=== PATIENT | female | born 1995 | race Caucasian/White ===

== ENCOUNTER 2020-03-26 18:43 | Emergency (ER) | payer OTHER, SELFPAY ==
[2020-03-26 18:48] VITALS: BP 113/63; PULSE 61; RESP 16; TEMP 37; O2SAT 98; BMI 20.1
--- NOTE | 2020-03-26 18:53 | DI.RAD.S_ITS ---
PROCEDURE: XR FOOT RT MIN 3V INDICATIONS: left foot pain TECHNIQUE: 3 views of the foot were acquired. COMPARISON: None. FINDINGS: Bones: No fractures or dislocations. No suspicious bony lesions. Soft tissues: No tibiotalar joint effusion. Achilles tendon appears normal. IMPRESSION: No fracture. If the patient's symptoms do not improve recommend followup radiographs in 10 days to assess for healing sclerosis/occult injury. Dictated by: Vidal Cordoba M.D. on 03/26/2020 at 19:09 Approved by: Vidal Cordoba M.D. on 03/26/2020 at 19:11
--- NOTE | 2020-03-26 19:54 | ED.LOWEXIN ---
HPI - Extremity Injury (Lower) General Chief Complaint: Extremity Injury, Lower Stated Complaint: left foot injury, heard cracking Time Seen by Provider: 03/26/20 18:59 Source: patient Mode of arrival: Ambulatory Limitations: no limitations History of Present Illness HPI Narrative: 24-year-old female here for evaluation of left foot pain. States that earlier today she did hit it on a piece of furniture and since that time has had pain over the little toe of her left foot. She came in for an x-ray because she was concerned about a fracture. Related Data Allergies Allergy/AdvReac Type Severity Reaction Status Date / Time latex Allergy Verified 03/26/20 18:48 Review of Systems Constitutional Constitutional: Denies headache(s) ENT Ears, Nose, Mouth, and Throat: Denies headache(s) Musculoskeletal Musculoskeletal: Denies tingling Comments: Left foot pain Integumentary/Breasts Skin/Breast: Denies lesions and Denies rash Neurologic Neurologic: Denies headache(s) and Denies tingling Hematologic/Lymphatic On Anticoagulants: No Allergic/Immunologic Allergic/Immunologic: Denies urticaria Patient History Medical History Healthy adult Social History Smoking Status: Never smoker Smoking Status: Never smoker Substance Use Type: does not use Exam Initial Vital Signs Initial Vital Signs: Vital Signs Temperature 98.6 F 03/26/20 18:48 Pulse Rate 61 03/26/20 18:48 Respiratory Rate 16 03/26/20 18:48 Blood Pressure 113/63 03/26/20 18:48 Pulse Oximetry 98 03/26/20 18:48 Const General: cooperative and comfortable Limitations: mental status not altered HENNC Head: normal to inspection and normocephalic Skin Lesions: no lesions Rashes: no rashes Neuro Sensory Exam: no sensory deficits noted Extrem Other: Tenderness to palpation over the lateral 2 toes of her left foot Psych Appearance: grossly normal and well kempt Procedures Orthopedic Splinting/Casting Injury #1: Side: left Lower Extremity Injury Location: foot Lower Extremity Immobilizer: post-op shoe Post splinting neuro exam: intact Post splinting vascular exam: intact Placed by: Nursing Course Orders Ordered: ED Orders 03/26/20 18:53 XR foot RT min 3V Stat Vital Signs Vital signs: Vital Signs - 8 hr 03/26/20 18:48 Temperature 98.6 F Pulse Rate 61 Respiratory Rate 16 Blood Pressure 113/63 Pulse Oximetry 98 MDM - Extremity Injury (Lower) Lab Data Labs: Point of Care Testing Test Results Negative Imaging Data Extremity x-ray #1: Radiologist's Impression: [address] [id number] ReportSigned Patient: Sierra GodinezMR#: [id number]: 1995Acct:[id number]/Sex: 24 / FDate of Service: 03/26/20Loc: EDAccession Number: [id number] Procedure: XR foot RT min 3V Ordering Provider: Octavio Lopez D.O. PROCEDURE: XR FOOT RT MIN 3V INDICATIONS: left foot pain TECHNIQUE: 3 views of the foot were acquired. COMPARISON: None. FINDINGS: Bones: No fractures or dislocations. No suspicious bony lesions. Soft tissues: No tibiotalar joint effusion. Achilles tendon appears normal. IMPRESSION: No fracture. If the patient's symptoms do not improve recommend followup radiographs in 10 days to assess for healing sclerosis/occult injury. Dictated by: Vidal Cordoba M.D. on 03/26/2020 at 19:09 Approved by: Vidal Cordoba M.D. on 03/26/2020 at 19:11 [facility] Narrative Medical decision making narrative: No fractures on the x-ray, neurovascularly intact, patient was given a hard sole shoe for her comfort. She was given return precautions and follow-up instructions. She expressed understanding and agreement. Discharge Plan Departure Patient Disposition: Home Clinical Impression: Injury of toe on left foot Qualifiers: Encounter type: initial encounter Qualified Code(s): S99.922A - Unspecified injury of left foot, initial encounter Activity Restrictions/Additional Instructions: I would recommend that you keep your foot elevated. You can also use ice. Use the hard sole shoe as needed. Otherwise you have no restrictions on your activities. Return to the emergency department for any new or worsening symptoms
== END 2020-03-26 20:00 | disposition home or self-care (01) ==
PROVIDERS: Emergency Provider Emergency Medicine
DX: S99.922A Unspecified injury of left foot, initial encounter (principal); W22.03XA Walked into furniture, initial encounter
CPT/HCPCS: 73630; 81025; 99281; 99283

== ENCOUNTER 2021-08-24 11:44 | Emergency (ER) | payer OTHER, SELFPAY ==
[2021-08-24 12:42] VITALS: BP 107/53; PULSE 76; RESP 18; TEMP 36.2; O2SAT 100; BMI 20.7
[2021-08-24 16:37] VITALS: BP 105/52; PULSE 62; O2SAT 100
--- NOTE | 2021-08-24 16:43 | DI.US.S_ITS ---
PROCEDURE: US OB <= 14 WEEKS FETUS INDICATIONS: abd pain, approx 7 weeks preg OUTSIDE/PRIOR DATING DATA: Last menstrual period (LMP): 07/02/2021. LMP-based estimated date of delivery (DAKOTA): 04/08/2022. First dating scan (date and location): 08/24/2021. Estimated date of delivery (DAKOTA) from first dating scan: 04/06/2022. The calculations are made using the ultrasound generated DAKOTA of 04/06/2019. TECHNIQUE: Real-time scanning was performed of the fetus and maternal pelvic organs, with image documentation. Endovaginal scanning was also performed to better visualize the fetus and maternal ovaries. COMPARISON: None. FINDINGS: [employer]-rump length 1.5 cm, corresponding to gestational age of 7 weeks 6 days. Yolk sac noted. heart rate 157 beats per minute. Ovaries normal in size and appearance. Probable corpus luteum cyst in the right ovary noted. IMPRESSION: Single live intrauterine gestation with estimated ultrasound age of 7 weeks 6 days. We strive to produce accurate, complete, and clear reports of imaging services. To assist us in improving patient care, this report was composed using standard report templates and voice recognition software. Therefore, it may contain abnormal punctuation, insertions and/or omissions. Occasional wrong-word or sound-alike substitutions may occur. Though we review the report and make efforts to correct it, we do recommend that the report be read carefully in proper context to recognize any text inaccuracies. Dictated by: Jackson Pittman M.D. on 08/24/2021 at 17:36 Approved by: Jackson Pittman M.D. on 08/24/2021 at 17:38
[2021-08-24 16:56] LABS: Add Manual Diff / Slide Review NO; Basophils Absolute Auto 100 /uL (0-100); Basophils Percent Auto 1.2 % (0-2); Eosinophils Absolute Auto 100 /uL (0-450); Eosinophils Percent Auto 1.2 % (2-4); Hematocrit 33.5 % (36-46); Hemoglobin 11.5 g/dL (12.0-16.0); Lymphocytes Absolute Auto 1700 /uL (1100-4500); Lymphocytes Percent Auto 23.1 % (25-40); Mean Corpuscular HGB Conc 34.2 % (30-36); Mean Corpuscular Hemoglobin 30.3 PG (26-34); Mean Corpuscular Volume 88.7 fL (80-100); Monocytes Absolute Auto 700 /uL (0-900); Neutrophils Absolute Auto 4700 /uL (1500-7000); Neutrophils Percent Auto 65.5 % (50-75); Platelet Count 228 X10^3/uL (150-400); Red Blood Cell Count 3.78 X10^6/uL (4.0-5.2); Red Cell Distribution Width 13.4 % (11.6-14.8); White Blood Cell Count 7.2 X10^3/uL (4.5-11.0)
--- NOTE | 2021-08-24 16:56 | ED.FEMALEGU ---
HPI - Female Genitourinary General Chief complaint: Abdominal Pain Stated complaint: 7 wks - Stomach pain Time Seen by Provider: 08/24/21 16:43 Source: patient Mode of arrival: Ambulatory Limitations: no limitations History of Present Illness HPI Narrative: This is a 26-year-old G P will approximately 7 weeks by dates. Patient has had some nausea but today started having abdominal discomfort sort of medial suprapubically. She states started little bit more epigastric and then moved further down. She does not any back or flank pain. She states both sides. She has had nausea but no active vomiting. No fevers. She felt a little lightheaded. She denies dysuria, urgency or frequency. No vaginal bleeding or discharge or changes to discharge. She had a diarrhea this morning which stabbed. No black or bloody stools she states it was normal coloration and not dark. She does have a history of IBS, she has had flares in the past but not with her prior pregnancies. She has had tympanostomy tubes, surgery for infection her eyebrow, tonsils and wisdom teeth but no other intra-abdominal surgeries. She takes sertraline currently 200 mg daily, no other daily medications. No medication allergies. She is accompanied by her family. She has not had an ultrasound to rule out ectopic. She has established with a OBGYN provider here locally. Related Data Home Medications Medication Instructions Recorded Confirmed buspirone 10 mg tablet 10 mg PO BID 11/20/20 11/20/20 sertraline 50 mg tablet 150 mg PO DAILY 11/20/20 11/20/20 Previous Rx's Medication Instructions Recorded ondansetron 4 mg disintegrating 4 mg PO Q6H PRN nausea and 08/24/21 tablet vomiting #10 tabs Allergies Allergy/AdvReac Type Severity Reaction Status Date / Time latex Allergy welts at Verified 01/22/21 12:21 location of latex Review of Systems Review of Systems ROS Unobtainable: All systems reviewed & are unremarkable except as noted in HPI and below Patient History Medical History Healthy adult alcohol intake frequency: holidays/special occasions only Substance Use Type: does not use Exam Narrative Exam Narrative: GENERAL: Alert and oriented x three, well-appearing female in mild distress. HEENT: Head normocephalic, atraumatic, EOMI, pupils reactive, face symmetric, moist mucous membranes NECK: Supple, full range of motion CARDIOVASCULAR: Regular rate and rhythm without murmurs, rubs or gallops. RESPIRATORY: Breath sounds equal bilaterally, no wheezes rales or rhonchi. ABDOMEN: Soft, positive lower abdominal tenderness greatest at the suprapubic region, mild to moderately left and right. Normoactive bowel sounds all 4 quadrants. No guarding or rebound, rigidity, no mass : No CVA tenderness EXTREMITIES: Normal range of motion, no clubbing or edema. Neurovascularly intact NEUROLOGICAL: Cranial nerves II through XII grossly intact. Moving all extremities SKIN: Warm, dry, no petechiae, no rashes or lesions. Initial Vital Signs Initial Vital Signs: Vital Signs Temperature 97.2 F L 08/24/21 12:42 Pulse Rate 76 08/24/21 12:42 Respiratory Rate 18 08/24/21 12:42 Blood Pressure 107/53 L 08/24/21 12:42 Pulse Oximetry 100 08/24/21 12:42 Oxygen Delivery Method 08/24/21 12:42 Course Orders Ordered: ED Orders 08/24/21 16:43 US OB <= 14 weeks fetus Stat 08/24/21 16:50 ABO RH Type Stat Beta HCG, Quant [HCG Quantitative /Beta subunit] Stat CBC Auto Diff [Complete Blood Count AUTO DIFF] Stat CMP [Comprehensive Metabolic Panel] Stat Lipase Stat Discontinued Medications Acetaminophen (Acetaminophen 325 Mg Tablet) 975 mg PO NOW ONE Stop: 08/24/21 17:07 Last Admin: 08/24/21 17:33 Dose: 975 mg Documented By: FREEMAN Sodium Chloride (Normal Saline 0.9%) 1,000 mls @ 1,000 mls/hr IV BOLUS ONE Stop: 08/24/21 18:05 Last Infusion: 08/24/21 18:32 Dose: 0 mls/hr Documented By: Admin: 08/24/21 17:33 Dose: 1,000 mls/hr Documented By: FREEMAN Ondansetron HCl (Ondansetron 4 Mg/2 Ml Inj) 4 mg IV NOW ONE Stop: 08/24/21 17:46 Last Admin: 08/24/21 17:50 Dose: 4 mg Documented By: FREEMAN Vital Signs Vital signs: Vital Signs - 8 hr 08/24/21 12:42 08/24/21 16:37 08/24/21 16:37 Temperature 97.2 F L Pulse Rate 76 62 Respiratory Rate 18 Blood Pressure 107/53 L 105/52 L Pulse Oximetry 100 100 Oxygen Delivery Method Room Air 08/24/21 18:13 Temperature Pulse Rate 74 Respiratory Rate 16 Blood Pressure 105/60 Pulse Oximetry 99 Oxygen Delivery Method Room Air MDM - Female Genitourinary Lab Data Result diagrams: 08/24/21 16:50 08/24/21 16:50 Labs: Lab Results 08/24/21 08/24/21 08/24/21 Range/Units 16:50 16:50 16:50 WBC 7.2 (4.5-11.0) X10^3/uL RBC 3.78 L (4.0-5.2) X10^6/uL Hgb 11.5 L (12.0-16.0) g/dL Hct 33.5 L (36-46) % MCV 88.7 (80-100) fL MCH 30.3 (26-34) PG MCHC 34.2 (30-36) % RDW 13.4 (11.6-14.8) % Plt Count 228 (150-400) X10^3/uL Neut % (Auto) 65.5 (50-75) % Lymph % (Auto) 23.1 L (25-40) % [place] % (Auto) 9.0 (3-14) % Eos % (Auto) 1.2 L (2-4) % Baso % (Auto) 1.2 (0-2) % Neut # (Auto) 4700 (1094-7550) /uL Lymph # (Auto) 1700 (3873-4743) /uL [place] # (Auto) 700 (0-900) /uL Eos # (Auto) 100 (0-450) /uL Baso # (Auto) 100 (0-100) /uL Sodium 135 L (137-145) mmol/L Potassium 3.6 (3.4-5.1) mmol/L Chloride 105 (98-107) mmol/L Carbon Dioxide 22 (22-32) mmol/L BUN 12 (7-17) mg/dL Creatinine 0.57 (0.52-1.04) mg/dL Estimated GFR > 60 (>60) mL/min BUN/Creatinine Ratio 21.1 (6-22) Glucose 118 H (70-100) mg/dL Calcium 8.6 (8.4-10.2) mg/dL Total Bilirubin 0.5 (0.2-1.3) mg/dL AST 18 (14-36) IU/L ALT 12 (<35) IU/L Alkaline Phosphatase 37 L (38-126) U/L Total Protein 7.1 (6.3-8.2) g/dL Albumin 4.3 (3.5-5.0) g/dL Globulin 2.8 (1.7-4.1) g/dL Albumin/Globulin Ratio 1.5 (1.0-2.8) Lipase 46 (23-300) U/L HCG, Quant 95869 mIU/mL Blood Type O Negative Point of Care Testing Test Results Positive Urine Dip Bedside Urine Glucose Negative Bedside Urine Bilirubin - Negative Bedside Urine Ketone - Negative Urine Specific [place] 1.025 Bedside Urine Occult Blood - Negative Bedside Urine pH 6.0 Bedside Urine Protein - Negative Bedside Urine Urobilinogen - Negative Bedside Urine Nitrite - Negative Bedside Urine Leukocytes - Negative Esterase MDM Narrative Medical decision making narrative: This is a 26-year-old female who is approximately 7 weeks by dates, she has had increasing abdominal pain she does have a history of IBS she did have diarrhea today but has not had ultrasound to evaluate for ectopic she has not had any vaginal bleeding or new discharge. No fevers. Labs do not reveal any other causes. Urine does not show any signs of infection. Patient had Tylenol fluids here in the department ultrasound shows 7 weeks and 6 days which consistent with patient states, hCG appropriate no signs of ectopic. Plan for patient to follow-up with providers Discharge Plan Departure Patient Disposition: Home Clinical Impression: Abdominal pain affecting Activity Restrictions/Additional Instructions: Follow-up with your provider. Follow up at your appointment in September. Your ultrasound today is reassuring and does not show any signs of and you appear to be 7 weeks and 6 days by ultrasound. You may continue with Tylenol up to a 1000 mg every 6 hours as needed. You can take Zofran 1 tablet every 6 hours as needed for nausea. Prescription sent to [facility] Please return for fevers, worsening symptoms, persistent vomiting, black or bloody stools, rapidly worsening abdominal, back or flank pain or other new or concerning symptoms. Prescriptions: New ondansetron 4 mg tablet,disintegrating 4 mg PO Q6H PRN (Reason: nausea and vomiting) Qty: 10 0RF No Action sertraline 50 mg tablet 150 mg PO DAILY buspirone 10 mg tablet 10 mg PO BID Referrals: Madelin Pantoja, Pharm.D [Primary Care Provider] - Visit Report Forms: Patient Portal/API
[2021-08-24 17:09] LABS: Alanine Aminotransferase 12 IU/L (<35); Albumin 4.3 g/dL (3.5-5.0); Albumin Globulin Ratio 1.5 (1.0-2.8); Alkaline Phosphatase 37 U/L (38-126); Aspartate Aminotransferase 18 IU/L (14-36); BUN Creatinine Ratio 21.1 (6-22); Bilirubin Total 0.5 mg/dL (0.2-1.3); Blood Urea Nitrogen 12 mg/dL (7-17); Calcium 8.6 mg/dL (8.4-10.2); Carbon Dioxide 22 mmol/L (22-32); Chloride 105 mmol/L (98-107); Estimated Glomerular Filt Rate > 60 mL/min (>60); Globulin 2.8 g/dL (1.7-4.1); Glucose 118 mg/dL (70-100); HEMOLYSIS < 15 (0-50); Lipase 46 U/L (23-300); Potassium 3.6 mmol/L (3.4-5.1); Sodium 135 mmol/L (137-145); Total Protein 7.1 g/dL (6.3-8.2)
[2021-08-24] MEDS: ACETAMINOPHEN 325 MG TABLET 975 MG PO (17:33)
[2021-08-24] MEDS: SODIUM CHLORIDE 0.9% 1,000 ML 1000 ML IV (17:33)
[2021-08-24 17:50] LABS: HCG Quantitative /Beta subunit 44126 mIU/mL
[2021-08-24] MEDS: ONDANSETRON 4 MG/2 ML INJ IV (17:50)
[2021-08-24 18:13] VITALS: BP 105/60; PULSE 74; RESP 16; O2SAT 99
== END 2021-08-24 18:13 | disposition home or self-care (01) ==
PROVIDERS: Emergency Provider Emergency Medicine; PCP Pharmacist Pharmacist Clinician (PhC)/ Clinical Pharmacy Specialist
DX: O26.891 Other specified pregnancy related conditions, first trimester (principal); R10.13 Epigastric pain; Z3A.01 Less than 8 weeks gestation of pregnancy
CPT/HCPCS: 36415; 76801; 76817; 80053; 81003; 81025; 83690; 84702; 85025; 86900; 86901; 96361; 96374; 99284; J2405

== ENCOUNTER → 2022-02-10 17:45 | Outpatient (CLI) | payer OTHER, SELFPAY ==
[2022-02-10 18:34] LABS: Influenza A - CEPHEID Flu A POSITIVE (NEGATIVE); Influenza B - CEPHEID Flu B NEGATIVE (NEGATIVE); Respiratory Syncytial Virus Negative (Negative)
[2022-02-10 18:35] LABS: COVID-19 CEPHEID 4-PLEX PCR Negative (Negative)
== END ==
PROVIDERS: PCP Pharmacist Pharmacist Clinician (PhC)/ Clinical Pharmacy Specialist; Visit Provider Nurse Practitioner Family
DX: R50.9 Fever, unspecified (principal); Z20.822 Contact with and (suspected) exposure to COVID-19
CPT/HCPCS: 0241U

== ENCOUNTER 2022-05-16 10:49 | Emergency (ER) | payer OTHER, SELFPAY ==
[2022-05-16] VITALS (7 sets, daily range): BP systolic 105–116; BP diastolic 54–71; PULSE 63–88; RESP 17–18; TEMP 36.6; O2SAT 97–100; BMI 21.9
--- NOTE | 2022-05-16 13:03 | ED.EYEPROB ---
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 She was worried that possibly the nerves were bigger. Patient is not having any new or worsening symptoms accept that she is having difficulty seeing at night. She reports that her vision is very poor it has been for her whole life. She also reports that she is trying to get she believes that she is now. Previously when she is been it has caused multiple problems with her vision and her body. She denies any headaches numbness tingling weakness ataxia blurry vision double vision or any other signs or symptoms. The person she saw yesterday recommended that she come to an ER immediately for an MRI. Her paper reports that she has pressures in her left eye 16 and right eye F 14 which are not elevated. Related Data Home Medications Medication Instructions Recorded Confirmed buspirone 10 mg tablet 10 mg PO BID 11/20/20 11/20/20 sertraline 50 mg tablet 150 mg PO DAILY 11/20/20 11/20/20 Previous Rx's Medication Instructions Recorded ondansetron 4 mg disintegrating 4 mg PO Q6H PRN nausea and 08/24/21 tablet vomiting #10 tabs Allergies Allergy/AdvReac Type Severity Reaction Status Date / Time latex Allergy welts at Verified 01/22/21 12:21 location of latex Review of Systems Review of Systems ROS Unobtainable: All systems reviewed & are unremarkable except as noted in HPI and below Patient History Medical History Healthy adult Social History Smoking Status: Never smoker Smoking Status: Never smoker alcohol intake frequency: holidays/special occasions only Substance Use Type: does not use Exam Initial Vital Signs Initial Vital Signs: Vital Signs Temperature 97.9 F 05/16/22 10:57 Pulse Rate 88 05/16/22 10:57 Respiratory Rate 18 05/16/22 10:57 Blood Pressure 116/71 05/16/22 10:57 Pulse Oximetry 98 05/16/22 10:57 Oxygen Delivery Method Room Air 05/16/22 10:57 GENERAL: Alert 27-year-old female year old patient HEAD: Atraumatic. Normocephalic. EYES: Pupils equal round and reactive. Extraocular motions intact. No scleral icterus. No injection or drainage. CARDIOVASCULAR: Regular rate and rhythm without murmurs, gallops, or rubs. RESPIRATORY: Clear to auscultation. Breath sounds equal bilaterally. No wheezes, rales, or rhonchi. NEURO: AOx3. SKIN: No rash or erythema of visible areas Course Orders Ordered: ED Orders 05/16/22 13:35 Urine Culture Stat Urine Microscopic Stat Discontinued Medications Proparacaine HCl (Proparacaine 0.5% Ophth Celia) 1 drops EYE-BOTH NOW ONE Stop: 05/16/22 13:23 Last Admin: 05/16/22 13:30 Dose: 1 drop Documented By: JARROD Vital Signs Vital signs: Vital Signs - 8 hr 05/16/22 13:57 05/16/22 13:42 05/16/22 13:43 Pulse Rate 63 65 Respiratory Rate 17 Blood Pressure 113/67 105/54 L Pulse Oximetry 98 97 Oxygen Delivery Method Room Air 05/16/22 13:43 05/16/22 13:52 05/16/22 13:52 Pulse Rate 64 68 Respiratory Rate Blood Pressure 113/67 Pulse Oximetry 97 98 Oxygen Delivery Method MDM - Eye Problem Lab Data Labs: Lab Results 05/16/22 Range/Units 13:35 Urine RBC None seen (0-5/HPF) Urine WBC 5-10/hpf H (0-5/HPF) Ur Squamous Epith Cells 5-10 /hpf H (0-5/HPF) Amorphous Sediment 2+ Urine Bacteria Few (2-10) H (None) Point of Care Testing Test Results Negative Urine Dip Bedside Urine Glucose Negative Bedside Urine Bilirubin - Negative Bedside Urine Ketone - Negative Urine Specific [place] 1.020 Bedside Urine Occult Blood - Negative Bedside Urine pH 7 Bedside Urine Protein - Negative Bedside Urine Urobilinogen - Negative Bedside Urine Nitrite - Negative Bedside Urine Leukocytes + 70 Esterase MDM Narrative Medical decision making narrative: Patient 27-year-old female who has chronic ongoing eye issues and large nerves stigmatism she is very in tune with her body in eye she is been dealing with this her whole life. She really has no new neurologic deficits. She has some worsening night vision. She has no difficulty walking no headaches no nausea no vomiting double or blurry vision. She is here at the request of a provider who evaluated her yesterday for an emergent MRI. Her pressures in her eyes both yesterday and today are well within normal limits 18 L 16 R. I see no need reason for an emergent MRI today. I do strongly encourage her to see an substance abuse prevention coordinator to follow her eyes. She was concerned that she might be she is not Discharge Plan Departure Patient Disposition: Home Clinical Impression: Vision abnormalities Instructions: Coping With Low Vision Activity Restrictions/Additional Instructions: *You have been diagnosed with visual changes *What to do: At this time I see absolutely no reason for an emergent MRI. At this time your urine is still negative although still early I am hopeful for you *Continue to take medications as directed *Follow up with your primary care provider in 2-3 days or call [phone] *Return to ER if you should have increasing headache vomiting weakness numbness tingling difficulty ambulating or any new, worsening or concerning symptoms Prescriptions: No Action sertraline 50 mg tablet 150 mg PO DAILY buspirone 10 mg tablet 10 mg PO BID ondansetron 4 mg tablet,disintegrating 4 mg PO Q6H PRN (Reason: nausea and vomiting) Qty: 10 0RF Referrals: Pili Smith MD [Physician] - Morris Waite MD [Physician] - Madelin Pantoja, Pharm.D [Primary Care Provider] - Stand Alone Forms: Patient Portal/API
[2022-05-16] MEDS: PROPARACAINE 0.5% OPHTH SOL 1 DROPS EYE-BOTH (13:30)
[2022-05-16 13:53] LABS: Amorphous Sediment Urine 2+; Bacteria Urine Few (2-10); RBC Urine None Seen (0-5/HPF); Squamous Epithelial Cell Urine 5-10 /HPF (0-5/HPF); WBC Urine 5-10/HPF (0-5/HPF)
== END 2022-05-16 13:59 | disposition home or self-care (01) ==
PROVIDERS: Emergency Provider Emergency Medicine; PCP Pharmacist Pharmacist Clinician (PhC)/ Clinical Pharmacy Specialist
DX: H53.9 Unspecified visual disturbance (principal)
CPT/HCPCS: 81003; 81015; 81025; 87086; 99282; 99283

== ENCOUNTER 2022-07-22 09:57 | Emergency (ER) | payer OTHER, SELFPAY ==
[2022-07-22 10:01] VITALS: BP 118/56; PULSE 66; RESP 14; TEMP 36.6; O2SAT 98; BMI 21.6
--- NOTE | 2022-07-22 10:03 | DI.US.S_ITS ---
PROCEDURE: US OB <= 14 WEEKS FETUS INDICATIONS: 8.5 WEEKS , SPOTTING, DENIES PAIN OUTSIDE/PRIOR DATING DATA: Last menstrual period (LMP): 05/23/2022. LMP-based estimated date of delivery (DAKOTA): 02/27/2023. First dating scan (date and location): 07/22/2022. Estimated date of delivery (DAKOTA) from first dating scan: 02/25/2023. TECHNIQUE: Real-time scanning was performed of the fetus and maternal pelvic organs, with image documentation. Endovaginal scanning was also performed to better visualize the fetus and maternal ovaries. COMPARISON: [facility], , OB <= 14 WEEKS FETUS, 08/24/2021, 17:09. FINDINGS: Embryo: Present, measuring 2.2 centimeter, corresponding to 8 weeks 6 days. Heart rate: 163 beats per minute Maternal organs: Ovaries are not visualized. IMPRESSION: Single living intrauterine at 8 weeks 6 days, DAKOTA of 02/25/2023. Findings are concordant with dating by LMP. No acute abnormality. We strive to produce accurate, complete, and clear reports of imaging services. To assist us in improving patient care, this report was composed using standard report templates and voice recognition software. Therefore, it may contain abnormal punctuation, insertions and/or omissions. Occasional wrong-word or sound-alike substitutions may occur. Though we review the report and make efforts to correct it, we do recommend that the report be read carefully in proper context to recognize any text inaccuracies. Dictated by: Brennan Skinner M.D. on 07/22/2022 at 10:52 Approved by: Brennan Skinner M.D. on 07/22/2022 at 10:54
[2022-07-22 11:40] LABS: Add Manual Diff / Slide Review NO; Basophils Absolute Auto 100 /uL (0-100); Eosinophils Absolute Auto 100 /uL (0-450); Hematocrit 32.5 % (36-46); Hemoglobin 11.3 g/dL (12.0-16.0); Lymphocytes Absolute Auto 1300 /uL (1100-4500); Mean Corpuscular HGB Conc 34.8 % (30-36); Mean Corpuscular Hemoglobin 30.4 PG (26-34); Mean Corpuscular Volume 87.6 fL (80-100); Monocytes Absolute Auto 800 /uL (0-900); Monocytes Percent Auto 10.3 % (3-14); Neutrophils Absolute Auto 5100 /uL (1500-7000); Neutrophils Percent Auto 69.7 % (50-75); Platelet Count 199 X10^3/uL (150-400); Red Blood Cell Count 3.71 X10^6/uL (4.0-5.2); Red Cell Distribution Width 13.8 % (11.6-14.8); White Blood Cell Count 7.3 X10^3/uL (4.5-11.0)
[2022-07-22 11:50] LABS: Alanine Aminotransferase 12 IU/L (<35); Albumin 4.2 g/dL (3.5-5.0); Albumin Globulin Ratio 1.4 (1.0-2.8); Alkaline Phosphatase 55 U/L (38-126); Aspartate Aminotransferase 18 IU/L (14-36); Bilirubin Total 1.2 mg/dL (0.2-1.3); Blood Urea Nitrogen 9 mg/dL (7-17); Calcium 8.8 mg/dL (8.4-10.2); Carbon Dioxide 23 mmol/L (22-32); Chloride 104 mmol/L (98-107); Estimated Glomerular Filt Rate > 60 mL/min (>60); Glucose 106 mg/dL (70-100); HEMOLYSIS < 15 (0-50); Sodium 135 mmol/L (137-145); Total Protein 7.2 g/dL (6.3-8.2)
[2022-07-22 12:31] LABS: HCG Quantitative /Beta subunit 83360 mIU/mL
[2022-07-22 13:15] VITALS: BP 113/53; PULSE 75; O2SAT 100
--- NOTE | 2022-07-22 14:20 | ED_ITS ---
HPI - <Carlene Omer PA-C - Last Filed: 07/22/22 14:31> General Chief complaint: Vaginal Bleeding Stated complaint: 8.5 weeks , spotting blood Time Seen by Provider: 07/22/22 13:35 Source: patient Mode of arrival: Ambulatory Limitations: no limitations History of Present Illness HPI Narrative: Is a well-appearing 27-year-old female 8 and half weeks who presents with concern for spotting this morning. Patient states that she had 2 episodes when she went to the bathroom and wiped where she saw a very small amount of light pink spotting present. She is not had any abdominal pain, low back pain or any additional bleeding and has otherwise been in her usual state of health. She states the has been going fine she is had a fair amount of morning sickness/nausea although she states it has been slightly less the last couple of days. She states she does follow with high-risk OB in [place] because her last she lost at 15 weeks. She is scheduled to have an ultrasound as an outpatient next week and additional labs and then is seeing her behavioral health rn in about 2 weeks' time for the 1st time. She denies any other complaints or concerns including fevers chills dysuria, urgency frequency abdominal pain flank pain or any other symptoms. Related Data Home Medications Medication Instructions Recorded Confirmed buspirone 10 mg tablet 10 mg PO BID 11/20/20 11/20/20 sertraline 50 mg tablet 150 mg PO DAILY 11/20/20 11/20/20 Previous Rx's Medication Instructions Recorded ondansetron 4 mg disintegrating 4 mg PO Q6H PRN nausea and 08/24/21 tablet vomiting #10 tabs Allergies Allergy/AdvReac Type Severity Reaction Status Date / Time latex Allergy welts at Verified 07/22/22 10:01 location of latex Review of Systems <Carlene Omer PA-C - Last Filed: 07/22/22 14:31> Review of Systems Narrative: See HPI Exam <Carlene Omer PA-C - Last Filed: 07/22/22 14:31> Narrative Exam Narrative: GENERAL: 27 year old patient appears stated age. Well-developed well-appearing patient, in no obvious distress. HEAD: Atraumatic. Normocephalic. EYES: Pupils equal round and reactive. Extraocular motions intact. No scleral icterus. No injection or drainage. ENT: Nose without bleeding, purulent drainage. Airway patent. NECK: Trachea midline. CARDIOVASCULAR: Regular rate and rhythm without murmurs, gallops, or rubs. RESPIRATORY: Clear to auscultation. Breath sounds equal bilaterally. No wheezes, rales, or rhonchi. GASTROINTESTINAL: Abdomen soft, non-tender, slightly protuberant, nondistended. EXTREMITIES: No edema or joint tenderness. BACK: Nontender without deformity or crepitance. No flank tenderness. NEURO: AOx3. SKIN: No rash or erythema of visible areas Initial Vital Signs Initial Vital Signs: Vital Signs Temperature 97.9 F 07/22/22 10:01 Pulse Rate 66 07/22/22 10:01 Respiratory Rate 14 07/22/22 10:01 Blood Pressure 118/56 L 07/22/22 10:01 Pulse Oximetry 98 07/22/22 10:01 Oxygen Delivery Method Room Air 07/22/22 10:01 <Reza Black MD - Last Filed: 07/29/22 04:52> Initial Vital Signs Initial Vital Signs: Vital Signs Temperature 97.9 F 07/22/22 10:01 Pulse Rate 66 07/22/22 10:01 Respiratory Rate 14 07/22/22 10:01 Blood Pressure 118/56 L 07/22/22 10:01 Pulse Oximetry 98 07/22/22 10:01 Oxygen Delivery Method Room Air 07/22/22 10:01 Course <Carlene Omer PA-C - Last Filed: 07/22/22 14:31> Orders Ordered: ED Orders 07/22/22 10:03 US OB <= 14 weeks fetus Stat 07/22/22 11:22 Complete Blood Count AUTO DIFF Stat Comprehensive Metabolic Panel Stat HCG Quantitative /Beta subunit Stat Type and Screen Stat Vital Signs Vital signs: Vital Signs - 8 hr 07/22/22 10:01 07/22/22 13:15 Temperature 97.9 F Pulse Rate 66 75 Respiratory Rate 14 Blood Pressure 118/56 L 113/53 L Pulse Oximetry 98 100 Oxygen Delivery Method Room Air Room Air <Reza Black MD - Last Filed: 07/29/22 04:52> Orders Ordered: ED Orders 07/22/22 10:03 US OB <= 14 weeks fetus Stat 07/22/22 11:22 Complete Blood Count AUTO DIFF Stat Comprehensive Metabolic Panel Stat HCG Quantitative /Beta subunit Stat Type and Screen Stat Vital Signs Vital signs: Vital Signs - 8 hr 07/22/22 10:01 07/22/22 13:15 Temperature 97.9 F Pulse Rate 66 75 Respiratory Rate 14 Blood Pressure 118/56 L 113/53 L Pulse Oximetry 98 100 Oxygen Delivery Method Room Air Room Air MDM - OB/Uterine Contractions <Carlene Omer PA-C - Last Filed: 07/22/22 14:31> Differential Diagnosis Differential diagnosis: Likely other (Vaginal bleeding in , spotting) Lab Data Attestation: I reviewed the patient's lab results. 07/22/22 11:22 07/22/22 11:22 Labs: Lab Results 07/22/22 07/22/22 07/22/22 Range/Units 11:22 11:22 11:22 WBC 7.3 (4.5-11.0) X10^3/uL RBC 3.71 L (4.0-5.2) X10^6/uL Hgb 11.3 L (12.0-16.0) g/dL Hct 32.5 L (36-46) % MCV 87.6 (80-100) fL MCH 30.4 (26-34) PG MCHC 34.8 (30-36) % RDW 13.8 (11.6-14.8) % Plt Count 199 (150-400) X10^3/uL Neut % (Auto) 69.7 (50-75) % Lymph % (Auto) 18.0 L (25-40) % Wise % (Auto) 10.3 (3-14) % Eos % (Auto) 1.0 L (2-4) % Baso % (Auto) 1.0 (0-2) % Neut # (Auto) 5100 (5176-7518) /uL Lymph # (Auto) 1300 (1592-3649) /uL Wise # (Auto) 800 (0-900) /uL Eos # (Auto) 100 (0-450) /uL Baso # (Auto) 100 (0-100) /uL Sodium 135 L (137-145) mmol/L Potassium 4.0 (3.4-5.1) mmol/L Chloride 104 (98-107) mmol/L Carbon Dioxide 23 (22-32) mmol/L BUN 9 (7-17) mg/dL Creatinine 0.45 L (0.52-1.04) mg/dL Estimated GFR > 60 (>60) mL/min BUN/Creatinine Ratio 20.0 (6-22) Glucose 106 H (70-100) mg/dL Calcium 8.8 (8.4-10.2) mg/dL Total Bilirubin 1.2 (0.2-1.3) mg/dL AST 18 (14-36) IU/L ALT 12 (<35) IU/L Alkaline Phosphatase 55 (38-126) U/L Total Protein 7.2 (6.3-8.2) g/dL Albumin 4.2 (3.5-5.0) g/dL Globulin 3.0 (1.7-4.1) g/dL Albumin/Globulin Ratio 1.4 (1.0-2.8) HCG, Quant 97919 mIU/mL Blood Type O Negative Antibody Screen Negative Imaging Data US - OB: My Impression: Agree with Radiology interpretation Radiologist's Impression: [address] [address] Ultrasound Report Signed Patient: Sierra Godinez MR#: [id number] : 1995 Acct:[id number] Age/Sex: 27 / F Date of Service: 07/22/22 Loc: Accession Number: [id number] ?? Procedure: US OB <= 14 weeks fetus Ordering Provider: Reza Black MD PROCEDURE:? US OB <= 14 WEEKS FETUS ? INDICATIONS:? 8.5 WEEKS , SPOTTING, DENIES PAIN ? OUTSIDE/PRIOR DATING DATA:? Last menstrual period (LMP):? 05/23/2022.? LMP-based estimated date of delivery (DAKOTA):? 02/27/2023.? First dating scan (date and location):? 07/22/2022.? Estimated date of delivery (DAKOTA) from first dating scan:? 02/25/2023. ? TECHNIQUE:? Real-time scanning was performed of the fetus and maternal pelvic organs, with image documentation.? Endovaginal scanning was also performed to better visualize the fetus and maternal ovaries.? ? COMPARISON:? [facility], , US OB <= 14 WEEKS FETUS, 08/24/2021, 17:09. ? FINDINGS:? ? Embryo:? Present, measuring 2.2 centimeter, corresponding to 8 weeks 6 days. Heart rate:? 163 beats per minute ? Maternal organs:? Ovaries are not visualized. ? ? ? IMPRESSION:? Single living intrauterine at 8 weeks 6 days, DAKOTA of 02/25/2023.? Findings are concordant with dating by LMP.? No acute abnormality. ? We strive to produce accurate, complete, and clear reports of imaging services. To assist us in improving patient care, this report was composed using standard report templates and voice recognition software. Therefore, it may contain abnormal punctuation, insertions and/or omissions. Occasional wrong-word or sound-alike substitutions may occur. Though we review the report and make efforts to correct it, we do recommend that the report be read carefully in proper context to recognize any text inaccuracies. ? Dictated by: Brennan Skinner M.D. on 07/22/2022 at 10:52 ? ? Approved by: Brennan Skinner M.D. on 07/22/2022 at 10:54?? MDM Narrative Medical decision making narrative: Well-appearing 27-year-old female presents today with concern for 2 small amounts of pink spotting present this morning with wiping in the context of 8 and half weeks and previous loss at 15 weeks. Patient is following with high-risk OB. Ultrasound today shows an age-appropriate ultrasound at 8 weeks 6 days with heart rate of 163, [place] [address] consistent with patient's stage . Patient has had no pain or other symptoms and quite possible that the mild spotting she had this morning will self resolve in his nonspecific. Did advise the patient that she should seek a repeat hCG in 48-72 hours to ensure that this is rising appropriately. She will follow-up with her OB Gyne on this. She already has appointment scheduled over the next few weeks for this . Return precautions provided, follow-up plan discussed, all questions answered. <Reza Black MD - Last Filed: 07/29/22 04:52> Lab Data Labs: Lab Results 07/22/22 07/22/22 07/22/22 Range/Units 11:22 11:22 11:22 WBC 7.3 (4.5-11.0) X10^3/uL RBC 3.71 L (4.0-5.2) X10^6/uL Hgb 11.3 L (12.0-16.0) g/dL Hct 32.5 L (36-46) % MCV 87.6 (80-100) fL MCH 30.4 (26-34) PG MCHC 34.8 (30-36) % RDW 13.8 (11.6-14.8) % Plt Count 199 (150-400) X10^3/uL Neut % (Auto) 69.7 (50-75) % Lymph % (Auto) 18.0 L (25-40) % Wise % (Auto) 10.3 (3-14) % Eos % (Auto) 1.0 L (2-4) % Baso % (Auto) 1.0 (0-2) % Neut # (Auto) 5100 (2050-7783) /uL Lymph # (Auto) 1300 (7771-2907) /uL Wise # (Auto) 800 (0-900) /uL Eos # (Auto) 100 (0-450) /uL Baso # (Auto) 100 (0-100) /uL Sodium 135 L (137-145) mmol/L Potassium 4.0 (3.4-5.1) mmol/L Chloride 104 (98-107) mmol/L Carbon Dioxide 23 (22-32) mmol/L BUN 9 (7-17) mg/dL Creatinine 0.45 L (0.52-1.04) mg/dL Estimated GFR > 60 (>60) mL/min BUN/Creatinine Ratio 20.0 (6-22) Glucose 106 H (70-100) mg/dL Calcium 8.8 (8.4-10.2) mg/dL Total Bilirubin 1.2 (0.2-1.3) mg/dL AST 18 (14-36) IU/L ALT 12 (<35) IU/L Alkaline Phosphatase 55 (38-126) U/L Total Protein 7.2 (6.3-8.2) g/dL Albumin 4.2 (3.5-5.0) g/dL Globulin 3.0 (1.7-4.1) g/dL Albumin/Globulin Ratio 1.4 (1.0-2.8) HCG, Quant 16902 mIU/mL Blood Type O Negative Antibody Screen Negative Discharge Plan Departure Patient Disposition: Home Clinical Impression: Spotting during in first trimester Activity Restrictions/Additional Instructions: Thank you for letting us be part of her care in the emergency department today. Your ultrasound today was consistent with your stage of and the size of the fetus was measuring 8 weeks and 6days with a heart rate of 163. [place] [address] which is an appropriate level for your face of . I do recommend that you have this rechecked in 48-72 hours to ensure it is rising, you should follow-up closely with your optimization analyst regarding this unfortunately I was unable to pull up their name in my system to refer this chart to them but I do recommend you recheck with them today about having this lab ordered see you can get this done if they feel this is appropriate. Things are looking okay at this time of course if you do have new or worsening symptoms do not hesitate to be re-evaluated. There is no evidence of an emergent or life threatening illness at this time, but follow up with your doctor in 1-2 days is recommended nonetheless to continue to rule out serious underlying causes of your symptoms. Please call the office for an appointment. Please return to the Emergency Department for any worsening or persistent symptoms. Please take medications as directed. Prescriptions: No Action sertraline 50 mg tablet 150 mg PO DAILY buspirone 10 mg tablet 10 mg PO BID ondansetron 4 mg tablet,disintegrating 4 mg PO Q6H PRN (Reason: nausea and vomiting) Qty: 10 0RF Referrals: Madelin Pantoja, Pharm.D [Primary Care Provider] - Stand Alone Forms: Patient Portal/API <Reza Black MD - Last Filed: 07/29/22 04:52> [facility] Attestation: I was immediately available in the department for consultation. ?This documentation has been reviewed and I agree with assessment and plan. Supervised by Reza Black MD
[2022-07-22 14:38] VITALS: BP 105/54; PULSE 55; RESP 16; O2SAT 99
--- NOTE | 2022-07-22 14:40 | PC.NURSE ---
reports small amount of pink spotting. vss. feels good otherwise
== END 2022-07-22 14:43 | disposition home or self-care (01) ==
PROVIDERS: Emergency Medicine; Emergency Provider Student in an Organized Health Care Education/Training Program; PCP Pharmacist Pharmacist Clinician (PhC)/ Clinical Pharmacy Specialist
DX: O20.9 Hemorrhage in early pregnancy, unspecified (principal); Z3A.08 8 weeks gestation of pregnancy
CPT/HCPCS: 36415; 76801; 76817; 80053; 84702; 85025; 86850; 86900; 86901; 93976; 99283; 99284